=== PATIENT | female | born 1980 | race Caucasian/White ===

== ENCOUNTER 2021-01-15 14:35 | Emergency (ER) | payer OTHER, SELFPAY ==
[2021-01-15 14:40] VITALS: BP 123/90; PULSE 104; RESP 20; TEMP 37.8; O2SAT 100
[2021-01-15] MEDS: ACETAMINOPHEN 325 MG TABLET 650 MG PO (15:12)
[2021-01-15] MEDS: guaiFENesin 12 HR 600 MG TABCR PO (15:13)
[2021-01-15 15:40] LABS: SARS-CoV-2 Ag Negative (Negative)
--- NOTE | 2021-01-15 15:47 | ED.URI ---
HPI - URI/Sore Throat General Chief Complaint: Upper Respiratory Infection Stated Complaint: chest pain shortness of breath runny nose Time Seen by Provider: 01/15/21 14:40 Source: other (Pt wanted a covid-19 test. her sxs were mild. the test was ordered. Pt was not examined as she wanted to await the test result.) Related Data Home Medications Medication Instructions Recorded Confirmed No Home Medications 01/15/21 01/15/21 Allergies Allergy/AdvReac Type Severity Reaction Status Date / Time No Known Allergies Allergy Verified 01/15/21 14:51 Course Vital Signs Vital signs: Vital Signs Temperature 37.8 C H 01/15/21 14:40 Pulse Rate 104 H 01/15/21 14:40 Respiratory Rate 20 01/15/21 14:40 Blood Pressure 123/90 01/15/21 14:40 Pulse Oximetry 100 01/15/21 14:40 Temperature 37.8 C H 01/15/21 14:40 Pulse Rate 104 H 01/15/21 14:40 Respiratory Rate 20 01/15/21 14:40 Blood Pressure 123/90 01/15/21 14:40 Pulse Oximetry 100 01/15/21 14:40 MDM - URI/Sore Throat Lab Data Labs: Lab Results 01/15/21 Range/Units 14:53 SARS-CoV-2 Ag (Rapid) Negative (Negative) Discharge Plan Discharge Clinical Impression: Upper respiratory infection Patient Disposition: Left Without Being Seen Additional Instructions: Pt left before being examined. Her covid test was negative and her sxs were mild. Prescriptions: No Action No Home Medications RF: 0 Follow-up/Referrals: UNKNOWN,DOCTOR [Primary Care Provider] - Time of Disposition: 15:35
== END 2021-01-15 15:46 | disposition left against medical advice (07) ==
PROVIDERS: Emergency Provider Emergency Medicine
DX: J06.9 Acute upper respiratory infection, unspecified (principal); Z20.822 Contact with and (suspected) exposure to COVID-19
CPT/HCPCS: 87426; 99199; A9270; C9803

== ENCOUNTER 2021-01-17 14:03 | Emergency (ER) | payer OTHER, SELFPAY ==
[2021-01-17 14:14] VITALS: BP 118/69; PULSE 103; RESP 16; TEMP 36.9; O2SAT 100
--- NOTE | 2021-01-17 14:26 | ED.GENADULT ---
HPI - General Adult General Chief complaint: Shortness of Breath/Dyspnea Stated complaint: Shortness of breath, body pain, congestion Time Seen by Provider: 01/17/21 14:26 Source: patient History of Present Illness HPI narrative: Patient was in the emergency room 2 days ago with same symptoms and left without being seen. Patient states her symptoms started 6 days ago. Patient was tested for COVID-19 2 days ago with an she was tested negative COVID-19 at [facility] 01/15/21. Patient states her chest pain and shortness of breath have gotten progressively worse and now has pain with inspiration. Related Data Home Medications Medication Instructions Recorded Confirmed No Home Medications 01/15/21 01/15/21 Allergies Allergy/AdvReac Type Severity Reaction Status Date / Time No Known Allergies Allergy Verified 01/17/21 14:39 Review of Systems Review of Systems: CONSTITUTIONAL: Denies fever, chills, or sweats. EYES: Denies visual changes, redness, or discharge. ENT: Denies rhinorrhea, congestion, sore throat, or otalgia. CARDIOVASCULAR: Denies palpitations, or edema. RESPIRATORY: Patient presents with increased shortness of breath and midsternal chest pain patient states her symptoms have gotten worse over the last few days GASTROINTESTINAL: Denies abdominal pain, nausea, vomiting, or diarrhea. GENITOURINARY: Denies dysuria or hematuria. SKIN: Denies rash or itching. MUSCULOSKELETAL: Denies back pain, joint pain, or myalgia. NEUROLOGIC: Denies headache, numbness, or weakness. PSYCHIATRIC: Denies anxiety or depression. PMFSH Comments At time of signature, agree with nursing past medical, surgical, social and family history. There is no relevant family history pertinent to the presenting complaint Exam Narrative: GENERAL: Well-appearing, well-nourished, and in no acute distress. HEAD: Normocephalic, atraumatic. EYES: PERRLA and EOMI. ENT: Nares clear, no rhinorrhea or epistaxis. Mucous membranes moist. NECK: Supple. CHEST: Clear to auscultation. No respiratory distress. Midsternal chest pain worse with inspiration shortness of breath at rest HEART: Regular rate and rhythm. No murmur heard. Normal peripheral pulses. ABDOMEN: Soft, nontender, nondistended, normal active bowel sounds. EXTREMITIES: Normal range of motion. No edema. SKIN: Warm, dry, no rash. NEURO: No focal deficits. Alert and oriented x3. Tanisha Coma Scale Eye Opening: Spontaneous 4 [place] Coma Scale Motor: Obeys Commands 6 [place] Coma Scale Verbal: Oriented 5 [place] Coma Scale Total 15 Course Vital Signs Vital signs: Vital Signs Temperature 36.9 C 01/17/21 14:14 Pulse Rate 103 H 01/17/21 14:14 Respiratory Rate 16 01/17/21 14:14 Blood Pressure 118/69 01/17/21 14:14 Pulse Oximetry 100 01/17/21 14:14 Temperature 36.9 C 01/17/21 14:14 Pulse Rate 103 H 01/17/21 14:14 Respiratory Rate 16 01/17/21 14:14 Blood Pressure 118/69 01/17/21 14:14 Pulse Oximetry 100 01/17/21 14:14 Critical dx considered and discussed with pt. Educated patient on red flag s/s and to go to ED if s/s occur. Discussed with pt when to return to [facility] or primary care provider. Pt gave verbal undertstanding, all questions were answered, and pt was agreeable to plan Regarding diagnosis, Regarding diagnostic results, Regarding treatment plan, Regarding prescription, Patient indicated understanding of instructions. Critical dx considered and discussed with pt. Educated patient on red flag s/s and to go to ED if s/s occur. Discussed with pt when to return to [facility] or primary care provider. Pt gave verbal undertstanding, all questions were answered, and pt was agreeable to plan.. Transfer Transfered to: [facility]: Other (Patient declined ambulance states she cannot afford transferred by ambulance) Transfer rationale: Higher level of care Accepting physician: Disha APONTE Medical Decision Making Vital Signs Arabella
--- NOTE | 2021-01-17 14:59 | ECG_ITS ---
Measurements Intervals [place] Rate: 105 P: 80 ID: 111 QRS: 81 QRSD: 92 T: 52 QT: 316 QTc: 418 Interpretive Statements SINUS TACHYCARDIA WITH SHORT ID INTERVAL INCOMPLETE RIGHT BUNDLE BRANCH BLOCK BORDERLINE ECG Electronically Signed On 01-17-2021 15:06:52 CDT by Shade Meredith D.O.
== END 2021-01-17 14:55 | disposition short-term general hospital (02) ==
PROVIDERS: Emergency Provider Nurse Practitioner Family
DX: R06.02 Shortness of breath (principal); R06.00 Dyspnea, unspecified; I45.10 Unspecified right bundle-branch block
CPT/HCPCS: 93005; 99213; G0463

== ENCOUNTER 2021-01-17 15:42 | Emergency (ER) | payer OTHER, SELFPAY ==
--- NOTE | ~2021-01-17 | XR_ITS ---
EXAMINATION: XR chest 2V DATE: 01/17/2021 16:38 INDICATION: Shortness of breath. Midsternal chest pain. Cough. TECHNIQUE: Frontal and lateral views of the chest were obtained. COMPARISON: Thoracic spine radiographs 08/10/2016 FINDINGS: There are airspace opacities at left lung base. Calcified pulmonary nodules are consistent with old granulomatous disease. No pleural effusion or pneumothorax. The heart size is normal. IMPRESSION: 1. Airspace opacities at left lung base, likely pneumonia. Reviewed, dictated and finalized at location B.
--- NOTE | 2021-01-17 15:45 | ECG_ITS ---
Measurements Intervals Madeline Rate: 106 P: 55 NE: 105 QRS: 65 QRSD: 95 T: 12 QT: 317 QTc: 422 Interpretive Statements SINUS TACHYCARDIA WITH SHORT NE INTERVAL INCOMPLETE RIGHT BUNDLE BRANCH BLOCK ABNORMAL ECG Electronically Signed On 01-17-2021 16:25:09 CDT by Shade Meredith D.O.
[2021-01-17 15:46] VITALS: BP 121/82; PULSE 111; RESP 16; TEMP 36.4; O2SAT 97
[2021-01-17 18:36] VITALS: BP 130/77; PULSE 100; RESP 14; O2SAT 98
[2021-01-17 18:45] VITALS: PULSE 94
[2021-01-17 19:14] LABS: Basophils Percent Auto 0.2 % (0.2-1.2); Eosinophils Absolute Auto 0.1 K/mm3 (0-0.3); Eosinophils Percent Auto 0.4 % (0-4.4); Hematocrit 35.3 % (37.0-47.0); Hemoglobin 11.1 g/dL (12.0-15.0); Immature Granulocyte Absolute 0.14 K/mm3 (0.00-0.031); Lymphocytes Absolute Auto 1.27 K/mm3 (0.9-3.2); Lymphocytes Percent Auto 9.5 % (18.3-44.2); Mean Corpuscular HGB Conc 31.4 g/dl (32-36); Mean Corpuscular Hemoglobin 25.8 pg (26-34); Mean Corpuscular Volume 82.1 fl (80-100); Mean Platelet Volume 9.3 fl (7.4-10.4); Monocytes Percent Auto 7.5 % (2.6-8.5); Neutrophils Absolute Auto 10.9 K/mm3 (1.3-6.7); Neutrophils Percent Auto 81.4 % (45.5-73.1); Platelet Count Result 189 k/mm3 (150-375); Red Cell Distribution Width 12.7 % (11.5-14.5); White Blood Count 13.4 K/mm3 (4.5-10.0)
[2021-01-17 19:23] LABS: INR 1.1
[2021-01-17 19:24] LABS: Anion Gap 8 mmol/L (8-16); Blood Urea Nitrogen 16 mg/dL (7-17); Calcium 9.1 mg/dL (8.4-10.2); Carbon Dioxide 28 mmol/L (22-30); Chloride 96 mmol/L (98-107); Estimated CRCL calculation 87 ml/min; Estimated Glomerular Filt Rate > 60; Glucose 119 mg/dL (65-110); Potassium 3.3 mmol/L (3.4-5.0); Sodium 132 mmol/L (137-145)
--- NOTE | 2021-01-17 19:25 | PC.NURSE ---
Assumed care of pt at this time. Report from chandra GARCIA
[2021-01-17 19:35] LABS: Troponin I < 0.012 ng/mL (0.000-0.034)
[2021-01-17] MEDS: KETOROLAC 15 MG/ML VIAL (*BKC) IV PUSH (19:54)
[2021-01-17 19:55] VITALS: BP 132/76; PULSE 77; RESP 18; O2SAT 100
--- NOTE | 2021-01-17 20:55 | ED.GENADULT ---
HPI - General Adult General Chief complaint: Chest Pain Stated complaint: Chest Pain Time Seen by Provider: 01/17/21 18:14 History of Present Illness HPI narrative: Patient is a 40-year-old female who presents ER with chest pain and cough. Cough ongoing for 3 days. Associate with subjective fevers and chills. No known sick contacts. Had a negative Covid swab twice in the last 2 days. Has not had a chest x-ray. Chest pains on the right side worse with coughing. No alleviating factors. Related Data Allergies Allergy/AdvReac Type Severity Reaction Status Date / Time No Known Allergies Allergy Verified 01/17/21 18:38 Review of Systems Review of Systems: All systems reviewed & are unremarkable except as noted in HPI and below Constitutional: Constitutional: Reports chills, Reports fever(s) and Reports weakness ENT: Denies nasal congestion and Denies sore throat Cardiovascular: Cardiovascular: Reports chest pain, Denies rapid heart rate and Denies radiating jaw, neck or arm pain Respiratory: Respiratory: Reports chest congestion, Reports cough, Reports dyspnea and Denies wheezing Gastrointestinal: Gastrointestinal: Denies abdominal pain, Denies nausea and Denies vomiting PMFSH Past Medical History Medical History (Updated 01/17/21 @ 21:02 by Gerardo Boss MD) Healthy female adult Surgical History Surgical History (Updated 01/17/21 @ 20:56 by Gerardo Boss MD) No history of previous surgery Social History Social History (Updated 01/17/21 @ 20:56 by Gerardo Boss MD) Substance use type: crack/cocaine and amphetamines Exam Narrative: GENERAL: Well-appearing, well-nourished, and in no acute distress. HEAD: Normocephalic, atraumatic. ENT: Mucous membranes moist. CHEST: Scattered rales that clear with coughing. No respiratory distress. HEART: Regular rate and rhythm. Normal peripheral pulses. ABDOMEN: Soft, nontender, nondistended. EXTREMITIES: Normal range of motion. 1+ edema. SKIN: Warm, dry, no rash. NEURO: Alert and oriented x3. PSYCH: Normal mood and affect. Course Course Emergency Course: Patient informed results. First dose of antibiotics here. Discharge home. Vital Signs Vital signs: Vital Signs Temperature 97.6 F 01/17/21 15:46 Pulse Rate 111 H 01/17/21 15:46 Respiratory Rate 16 01/17/21 15:46 Blood Pressure 121/82 01/17/21 15:46 Pulse Oximetry 97 01/17/21 15:46 Temperature 97.6 F 01/17/21 15:46 Pulse Rate 77 01/17/21 19:55 Respiratory Rate 18 01/17/21 19:55 Blood Pressure 132/76 01/17/21 19:55 Pulse Oximetry 100 01/17/21 19:55 Medical Decision Making Vital Signs Vital Signs: Vital Signs Temperature 97.6 F 01/17/21 15:46 Pulse Rate 111 H 01/17/21 15:46 Respiratory Rate 16 01/17/21 15:46 Blood Pressure 121/82 01/17/21 15:46 Pulse Oximetry 97 01/17/21 15:46 Temperature 97.6 F 01/17/21 15:46 Pulse Rate 77 01/17/21 19:55 Respiratory Rate 18 01/17/21 19:55 Blood Pressure 132/76 01/17/21 19:55 Pulse Oximetry 100 01/17/21 19:55 Lab Data Result diagrams: 01/17/21 19:08 01/17/21 19:08 Labs: Lab Results 01/17/21 01/17/21 01/17/21 Range/Units 19:08 19:08 19:08 WBC 13.4 H (4.5-10.0) K/mm3 RBC 4.30 (4.2-5.4) M/mm3 Hgb 11.1 L (12.0-15.0) g/dL Hct 35.3 L (37.0-47.0) % MCV 82.1 (80-100) fl MCH 25.8 L (26-34) pg MCHC 31.4 L (32-36) g/dl RDW 12.7 (11.5-14.5) % Plt Count 189 (150-375) k/mm3 MPV 9.3 (7.4-10.4) fl Immature Gran % (Auto) 1.0 H (0-0.5) % Neut % (Auto) 81.4 H (45.5-73.1) % Lymph % (Auto) 9.5 L (18.3-44.2) % [place] % (Auto) 7.5 (2.6-8.5) % Eos % (Auto) 0.4 (0-4.4) % Baso % (Auto) 0.2 (0.2-1.2) % Lymph # (Auto) 1.27 (0.9-3.2) K/mm3 [place] # (Auto) 1.0 H (0.1-0.6) K/mm3 Eos # (Auto) 0.1 (0-0.3) K/mm3 Baso # (Auto) 0.0 (0.0-0.1) K/mm3 Abs Immat Gran (auto)
[2021-01-17 21:44] VITALS: BP 113/75; PULSE 113; RESP 20; O2SAT 100
[2021-01-17] MEDS: AZITHROMYCIN 250 MG TABLET 500 MG PO (21:44)
== END 2021-01-17 21:45 | disposition home or self-care (01) ==
PROVIDERS: Emergency Medicine; Emergency Provider Emergency Medicine
DX: J18.9 Pneumonia, unspecified organism (principal); R00.0 Tachycardia, unspecified
CPT/HCPCS: 36415; 71046; 80048; 84484; 85025; 85610; 85730; 93005; 96374; 99284; A9270; J1885